=== PATIENT | female | born 1975 | race Caucasian/White ===

== ENCOUNTER → 2021-08-01 | Outpatient (CLI) | payer OTHER ==
--- NOTE | 2021-08-05 16:11 | RAD ---
INDICATION : Routine Screening. COMPARISON: [facility] including May 2018 TECHNIQUE: Standard mammogram screening views of the bilateral breasts were obtained with 3D tomosynt hesis. CAD was utilized. FINDINGS: The breasts are heterogenous density. No definite suspicious mass. Scattered calcifications again se en. IMPRESSION: BI-RADS Category 2: Benign findings. The patient was placed into the recall system with a suggested recall date for follow up imaging. Mammography is the most sensitive method for finding small breast cancers, but it does not detect the m all and is not a substitute for careful clinical examination. A negative mammogram does not negate a clinically suspicious finding and should not result in delay in biopsying a clinically suspicious abnormality. Electronically signed by: Jabier Malin MD (08/05/2021 4:08 PM) [id number]
== END ==
LOC: MAMMO 11:21
PROVIDERS: ATTEND Physician Assistant Medical
DX: Z12.31 Encounter for screening mammogram for malignant neoplasm of breast (principal)
CPT/HCPCS: 77063; 77067

== ENCOUNTER → 2021-08-19 | Outpatient (CLI) | payer OTHER ==
--- NOTE | 2021-08-19 15:04 | RAD ---
EXAM: Left foot, 3 views. HISTORY: Pain. COMPARISON: None. FINDINGS: 3 views of the left foot are obtained. There is no fracture, dislocation or subluxation. Th ere is first metatarsal phalangeal joint space narrowing with degenerative subchondral sclerosis, sub chondral cyst formation and spurring. There is a tiny accessory navicular. There is a small plantar s pur. IMPRESSION: 1. Mild first measures phalangeal joint osteoarthritis. 2. Small plantar spur. Electronically signed by: Linn Harrison MD (08/19/2021 3:02 PM) [id number]
== END ==
LOC: RAD 14:36
PROVIDERS: ATTEND Physician Assistant Medical
DX: M19.072 Primary osteoarthritis, left ankle and foot (principal)
CPT/HCPCS: 73630